=== PATIENT | female | born 1990 | race Caucasian/White ===

== ENCOUNTER 2018-12-19 11:53 | Emergency (ER) | payer OTHER ==
[~2018-12-19] VITALS: Ht 170.2 cm; Wt 63.5 kg
[2018-12-19 12:00] VITALS: BP_SYST 114
[2018-12-19 15:00] VITALS: BP_SYST 112
== END 2018-12-19 15:00 | disposition home or self-care (01) ==
LOC: SED 11:53
DX: S89.81XA Other specified injuries of right lower leg, initial encounter (principal); X50.9XXA Other and unspecified overexertion or strenuous movements or postures, initial encounter; Y93.23 Activity, snow (alpine) (downhill) skiing, snowboarding, sledding, tobogganing and snow tubing; Y92.89 Other specified places as the place of occurrence of the external cause; Y99.8 Other external cause status
CPT/HCPCS: 73564; 81025; 99283